=== PATIENT | male | born 1940 | race Caucasian/White ===

== ENCOUNTER 2019-07-28 09:47 | Outpatient (CLI) | payer MEDICARE, SELFPAY ==
[2019-07-28 10:12] LABS: Collection Time Urine 24 HOURS
[2019-07-28 10:42] LABS: Creatinine Urine 117.78 mg/dL (40-278); Patient Weight 205 Lbs; Total Protein Urine Random 22.4 mg/dL (0.0-11.9)
[2019-07-28 11:09] LABS: Alanine Aminotransferase 25 U/L (16-63); Albumin Level 3.9 g/dL (3.4-5.0); Alkaline Phosphatase 96 U/L (46-116); Anion Gap 15.5 mmol/L (7-16); Aspartate Amino Transferase 15 U/L (15-37); Bilirubin,Total 0.4 mg/dL (0.00-1.00); Blood Urea Nitrogen 25 mg/dL (7-18); Calcium 8.7 mg/dL (8.5-10.1); Carbon Dioxide 25 mmol/L (21-32); Chloride 108 mmol/L (98-108); Estimated Glomerular Filt Rate 38; Glucose 99 mg/dL (70-99); Osmolality Calculated 302 mOsm/kg (285-295); Phosphorus 3.1 mg/dL (2.6-4.7); Potassium 4.5 mmol/L (3.5-5.1); Serum Creat 1.73; Sodium 144 mmol/L (136-145); Total Protein 7.4 g/dL (6.4-8.2)
[2019-07-28 11:10] LABS: Creatinine Clearance Urine 52.8 ml/min (97-137); Total Protein Urine 24 Hr 291 mg/24hr (0-149); Total Volume 24 Hour Urine 1300 ml
[2019-07-31 04:21] LABS: Microalbumin, Urine 11.7 mcg/min (<20); Microalbumin, Urine 16.9 mg/24 h (<30)
== END 2019-07-28 09:48 | disposition home or self-care (01) ==
LOC: CHSLAB 09:59
PROVIDERS: PCP Family Medicine
DX: N18.9 Chronic kidney disease, unspecified (principal); R89.9 Unspecified abnormal finding in specimens from other organs, systems and tissues; E21.3 Hyperparathyroidism, unspecified; C64.1 Malignant neoplasm of right kidney, except renal pelvis; D64.9 Anemia, unspecified
CPT/HCPCS: 36415; 80053; 81050; 82043; 82575; 84100; 84156

== ENCOUNTER 2019-08-21 09:29 | Outpatient (CLI) | payer MEDICARE, SELFPAY ==
[2019-08-25 11:27] LABS: Vitamin D 25 Hydroxy 37 ng/mL (30-100)
== END 2019-08-21 09:30 | disposition home or self-care (01) ==
PROVIDERS: PCP Family Medicine
DX: N18.3 Chronic kidney disease, stage 3 (moderate) (principal); C64.1 Malignant neoplasm of right kidney, except renal pelvis; Z90.5 Acquired absence of kidney; G47.33 Obstructive sleep apnea (adult) (pediatric); Z99.89 Dependence on other enabling machines and devices; D64.9 Anemia, unspecified; E55.9 Vitamin D deficiency, unspecified; E78.5 Hyperlipidemia, unspecified; E21.3 Hyperparathyroidism, unspecified; R03.0 Elevated blood-pressure reading, without diagnosis of hypertension
CPT/HCPCS: 36415; 82306

== ENCOUNTER 2020-07-08 09:23 | Outpatient (CLI) | payer MEDICARE, SELFPAY ==
[2020-07-08 09:37] LABS: Collection Time Urine 24 HOURS
[2020-07-08 09:43] LABS: Basophils Absolute Auto 0.01 K/mm3 (0.00-0.10); Basophils Percent Auto 0.2 % (0.0-1.0); Eosinophils Absolute Auto 0.08 K/mm3 (0.02-0.50); Eosinophils Percent Auto 1.4 % (1.0-6.0); Hematocrit 36.7 % (37.0-46.0); Hemoglobin 12.1 g/dL (12.4-15.3); Immature Granulocyte Absolute 0.02 K/mm3 (0.00-0.00); Immature Granulocyte Percent A 0.3 % (0.0-0.0); Lymphocytes Absolute Auto 1.72 K/mm3 (1.10-4.50); Lymphocytes Percent Auto 29.4 % (18.0-42.0); Mean Corpuscular Hemoglobin 30.1 pg (27.0-31.0); Mean Corpuscular Volume 91.3 fL (78.0-102.0); Monocytes Absolute Auto 0.42 K/mm3 (0.10-0.90); Monocytes Percent Auto 7.2 % (2.0-11.0); Neutrophils Absolute Auto 3.6 K/mm3 (1.7-7.2); Neutrophils Percent Auto 61.5 % (50.0-70.0); Platelet Count Result 244 K/mm3 (150-420); Red Blood Count 4.02 M/mm3 (4.70-6.10); Red Cell Distribution Width 14.6 % (11.6-14.4); White Blood Count 5.9 K/mm3 (4.8-10.8)
[2020-07-08 10:05] LABS: Creatinine Urine 115.81 mg/dL (40-278); Patient Weight 215 Lbs; Total Protein Urine Random 25.1 mg/dL (0.0-11.9)
[2020-07-08 10:14] LABS: Alanine Aminotransferase 25 U/L (16-63); Albumin Level 3.8 g/dL (3.4-5.0); Alkaline Phosphatase 99 U/L (46-116); Anion Gap 10 mmol/L (8-16); Aspartate Amino Transferase 10 U/L (15-37); Bilirubin,Total 0.5 mg/dL (0.00-1.00); Blood Urea Nitrogen 27 mg/dL (7-18); Carbon Dioxide 26 mmol/L (21-32); Chloride 106 mmol/L (98-108); Estimated Glomerular Filt Rate 35; Glucose 102 mg/dL (70-99); Osmolality Calculated 299 mOsm/kg (285-295); Phosphorus 3.1 mg/dL (2.6-4.7); Potassium 4.4 mmol/L (3.5-5.1); Sodium 142 mmol/L (136-145); Total Protein 7.2 g/dL (6.4-8.2)
[2020-07-08 10:15] LABS: Serum Creat 1.88
[2020-07-08 10:16] LABS: Creatinine Clearance Urine 55.8 ml/min (97-137); Total Protein Urine 24 Hr 389 mg/24hr (0-149); Total Volume 24 Hour Urine 1550 ml
[2020-07-08 10:18] LABS: Calcium 9.3 mg/dL (8.5-10.1)
[2020-07-08 10:23] LABS: Specific Gravity Ur 1.025
[2020-07-08 14:36] LABS: Add Urine Microscopic? YES; Appearance Urine Clear (Clear); Bilirubin Urine Negative (Negative); Blood Urine 3+ (Negative); Color Urine Yellow (Yellow); Glucose Urine UA Negative (Negative); Ketones Urine Negative (Negative); Leukocyte Esterase Ur Negative LEU/UL (Negative); Nitrate Urine Negative (Negative); Protein Urine Negative (Negative); Specific Grav Ur 1.025 (1.010-1.020); Urobilinogen Urine 0.2 mg/dL (0.2-1.0)
[2020-07-08 15:03] LABS: RBC Urine >75 /hpf (0-2); WBC Urine 0-3 /hpf (0-3)
[2020-07-08 15:04] LABS: Bacteria Urine 1+ /hpf; Squamous Epithelial Cell Urine Few /hpf (Few)
[2020-07-11 04:13] LABS: Vitamin D 25 Hydroxy 32 ng/mL (30-100)
[2020-07-11 12:04] LABS: Parathyroid Intact 54 pg/mL (14-64)
== END 2020-07-08 09:24 | disposition home or self-care (01) ==
PROVIDERS: PCP Family Medicine
DX: N18.31 Chronic kidney disease, stage 3a (principal)
CPT/HCPCS: 36415; 80053; 81001; 81050; 82306; 82575; 83970; 84100; 84156; 85025

== ENCOUNTER 2020-08-30 08:55 | Outpatient (CLI) | payer MEDICARE, SELFPAY ==
[2020-08-30 09:46] LABS: Anion Gap 11 mmol/L (8-16); Blood Urea Nitrogen 24 mg/dL (7-18); Calcium 8.8 mg/dL (8.5-10.1); Carbon Dioxide 26 mmol/L (21-32); Chloride 105 mmol/L (98-108); Estimated Glomerular Filt Rate 38; Glucose 104 mg/dL (70-99); Osmolality Calculated 298 mOsm/kg (285-295); Potassium 4.7 mmol/L (3.5-5.1); Sodium 142 mmol/L (136-145)
== END 2020-08-30 08:56 | disposition home or self-care (01) ==
PROVIDERS: PCP Family Medicine
DX: E87.5 Hyperkalemia (principal)
CPT/HCPCS: 36415; 80048

== ENCOUNTER 2020-10-18 11:16 | Outpatient (CLI) | payer MEDICARE, SELFPAY ==
--- NOTE | ~2020-10-18 | XR_ITS ---
EXAMINATION: XR lumbar spine 6V w bending DATE: 10/18/2020 11:37 INDICATION: Low back pain TECHNIQUE: Anteroposterior, lateral in neutral, flexion and extension, and bilateral oblique views of the lumbar spine, and cone-down lateral view of the lumbosacral junction were obtained. COMPARISON: 09/04/2018 FINDINGS: There are 2 mm of stable retrolisthesis of L1 on L2 and 6 mm of stable anterolisthesis of L 4 on L5. No laxity is present with flexion or extension. The vertebral body heights are maintained. T here is unchanged mild/moderate loss of intervertebral disc space height. There is no fracture. 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 Calcified atherosclerosis is noted. IMPRESSION: 1. Moderate lumbar spondylosis without acute findings or significant interval change. Reviewed, dictated and finalized at location A. IMPRESSION: 1. Moderate lumbar spondylosis without acute findings or significant interval lillian holguin
== END 2020-10-18 11:17 | disposition home or self-care (01) ==
PROVIDERS: PCP Family Medicine; Visit Provider Family Medicine
DX: M47.816 Spondylosis without myelopathy or radiculopathy, lumbar region (principal)
CPT/HCPCS: 72114

== ENCOUNTER 2020-12-12 11:22 | Outpatient (RCR) | payer MEDICARE, SELFPAY ==
[2020-09-30 11:35] LABS: Albumin Level 3.9 g/dL (3.4-5.0); Anion Gap 12 mmol/L (8-16); Blood Urea Nitrogen 27 mg/dL (7-18); Calcium 9.2 mg/dL (8.5-10.1); Carbon Dioxide 25 mmol/L (21-32); Chloride 107 mmol/L (98-108); Estimated Glomerular Filt Rate 38; Glucose 109 mg/dL (70-99); Osmolality Calculated 304 mOsm/kg (285-295); Potassium 5.1 mmol/L (3.5-5.1); Sodium 144 mmol/L (136-145)
[2020-10-31 13:20] LABS: Albumin Level 3.9 g/dL (3.4-5.0); Anion Gap 12 mmol/L (8-16); Blood Urea Nitrogen 26 mg/dL (7-18); Calcium 8.8 mg/dL (8.5-10.1); Carbon Dioxide 25 mmol/L (21-32); Chloride 109 mmol/L (98-108); Estimated Glomerular Filt Rate 37; Glucose 98 mg/dL (70-99); Osmolality Calculated 306 mOsm/kg (285-295); Phosphorus 2.9 mg/dL (2.6-4.7); Potassium 4.6 mmol/L (3.5-5.1); Sodium 146 mmol/L (136-145)
[2020-12-12 12:53] LABS: Albumin Level 3.8 g/dL (3.4-5.0); Blood Urea Nitrogen 24 mg/dL (7-18); Calcium 8.7 mg/dL (8.5-10.1); Carbon Dioxide 26 mmol/L (21-32); Estimated Glomerular Filt Rate 34; Glucose 167 mg/dL (70-99); Phosphorus 2.8 mg/dL (2.6-4.7)
[2020-12-12 15:58] LABS: Anion Gap 7 mmol/L (8-16); Chloride 105 mmol/L (98-107); Osmolality Calculated 294 mOsm/kg (285-295); Potassium 4.8 mmol/L (3.4-5.0); Sodium 138 mmol/L (137-145)
== END 2020-12-29 23:59 | disposition home or self-care (01) ==
LOC: CHSLAB 11:22
PROVIDERS: PCP Family Medicine
DX: E87.5 Hyperkalemia (principal); N18.31 Chronic kidney disease, stage 3a; E55.9 Vitamin D deficiency, unspecified; D63.8 Anemia in other chronic diseases classified elsewhere
CPT/HCPCS: 36415; 80069

== ENCOUNTER 2021-01-09 14:20 | Outpatient (CLI) | payer MEDICARE, SELFPAY ==
--- NOTE | ~2021-01-09 | XR_ITS ---
EXAMINATION: XR ankle LT min 3V DATE: 01/09/2021 14:42 INDICATION: Left ankle pain TECHNIQUE: Anteroposterior, lateral, mortise, and additional oblique view of the ankle were obtained. COMPARISON: None. FINDINGS: There is subtle heterotopic ossification projecting lateral to the medial malleolus. There is soft tissue swelling of the medial ankle. Bone alignment is normal. Posterior and plantar calcanea l enthesophytes are noted. IMPRESSION: 1. Heterotopic ossification adjacent to the medial malleolus with surrounding soft tissue swelling wh ich could reflect avulsion injury. Reviewed, dictated and finalized at location A. IMPRESSION: 1. Heterotopic ossification adjacent to the medial malleolus with surrounding s oft tissue swelling which could reflect avulsion injury.
== END 2021-01-09 14:21 | disposition home or self-care (01) ==
LOC: ANHIMG 14:26
PROVIDERS: PCP Family Medicine; Visit Provider Family Medicine
DX: M25.572 Pain in left ankle and joints of left foot (principal); R93.7 Abnormal findings on diagnostic imaging of other parts of musculoskeletal system
CPT/HCPCS: 73610

== ENCOUNTER 2021-03-13 07:29 | Outpatient (CLI) | payer MEDICARE, SELFPAY ==
--- NOTE | ~2021-03-13 | XR_ITS ---
XR foot LT min 3V DATE: 03/13/2021 07:50 INDICATION: Medial left foot pain for 3 to 4 months TECHNIQUE: 3 views COMPARISON: None FINDINGS: There is prominent plantar and posterior calcaneal enthesopathy. There is polyarticular osteoarthritis, including particularly the first tarsometatarsal and first met atarsophalangeal joints. No fracture or dislocation, periosteal reaction or bone destruction is detected. IMPRESSION: Polyarticular osteophytosis Prominent plantar and posterior calcaneal enthesopathy Reviewed, dictated and finalized at location B. R TECHNICIAN
== END 2021-03-13 07:30 | disposition home or self-care (01) ==
LOC: CHSIMG 07:33
PROVIDERS: PCP Family Medicine; Visit Provider Orthopaedic Surgery
DX: M79.672 Pain in left foot (principal)
CPT/HCPCS: 73630